=== PATIENT | female | born 1930 | race Caucasian/White ===

== ENCOUNTER → 2019-07-28 12:31 | Outpatient (CLI) | payer MEDICARE ==
[~2019-07-28 12:31] MED LIST: BAYER CHEWABLE81 MG PO; CALCIUM 600 +1 EAC3 PO; CARDIZEM CD120 MG PO; CARDIZEM CD240 MG PO; CELEXA20 MG PO; DEPAKOTE SPRIN125 MG PO; DEPAKOTE500 MG PO; EXELON 13.3 M13.3 MG TRANSDERM; FLORANEX / LACT1 TAB PO; HYDROCODON-ACE1 EAC7; K-DUR20 MEQ PO; KLONOPIN0.5 MG PO; LASIX40 MG PO; LASIX80 MG PO; LOMOTIL TABLET1 TAB PO; MULTIPLE VITAMI1 TA1 PO; PROAIR HFA8.5 GM INH; QUESTRAN PACK4 G/PKT PO; SCOT-TUSSI10 MG/5 ML PO; VANCOMYCIN250 MG/51 PO; VITAMIN B-12500 MC1 PO; VITAMIN D2000 UNIT PO; VITAMIN D5000 UNIT PO; ZYLOPRIM100 MG PO; ZYPREXA ZYDI5 MG/TAB PO; ZYPREXA20 MG PO; ZYPREXA5 MG PO
== END | disposition home or self-care (01) ==
LOC: D.CT 12:31
PROVIDERS: ATTEND Legal Medicine
DX: R93.89 Abnormal findings on diagnostic imaging of other specified body structures (principal)